=== PATIENT | male | born 1985 | race Caucasian/White ===

== ENCOUNTER 2017-01-03 12:45 | Emergency (ER) | payer SELFPAY ==
[2017-01-03] MEDS ORDERED: ADDERALL 30 MG30 M2 PO (12:48)
[2017-01-03] MEDS ORDERED: CELEXA20 M2 PO (12:48)
[2017-01-03 13:32] LABS: BASO % 0.5 % (0-2); EOS % 0.5 % (0-7); HCT-HEMATOCRIT 40.9 % (36.0-53.5); HGB-HEMOGLOBIN 14.7 gm/dl (13.5-17.0); IMMATURE GRANULOCYTES ABSOLUTE 0.03 tho/cmm (0-0.03); IMMATURE GRANULOCYTES PERCENT 0.5 % (0-0.3); LYMPH % 14.7 % (20-45); MCH (MEAN CORPUSCULAR HGB) 34.4 pg (28.0-32.0); MCHC MEAN CORPUSCULAR HGB CONC 35.9 % (32.0-36.0); MCV (MEAN CELL VOLUME) 95.8 fl (82.0-96.0); MEAN PLATELET VOLUME 9.6 cmc (9.4-12.4); MONO % 11.2 % (0-12); MONOCYTE ABSOLUTE COUNT 0.7 tho/cmm (0.0-1.2); NEUTROPHIL ABSOLUTE COUNT 4.7 tho/cmm (1.6-8.0); NEUTROPHIL-AUTOMATED 4.7 tho/cmm (1.6-8.0); NEUTROPHILS % 72.6 % (40-80); PLATELET COUNT 144 tho/cmm (150-450); RED BLOOD COUNT 4.27 mil/cmm (4.40-5.70); RED CELL DISTRIBUTION WIDTH 12.1 % (12.4-16.4); WHITE BLOOD COUNT 6.5 tho/cmm (4.0-10.0)
[2017-01-03 13:51] LABS: ALBUMIN 4.2 g/dl (3.5-5.0); ALCOHOL (ETOH) <10 mg/dl (<10); ALKALINE PHOSPHATASE 91 U/L (33-138); ALT/SGPT 135 U/L (12-78); ANION GAP 14 mmol/L (0-20); AST/SGOT 128 U/L (10-40); BILIRUBIN,TOTAL 1.1 mg/dl (0.0-1.5); BLOOD UREA NITROGEN 8 mg/dl (6-24); CALCIUM 9.3 mg/dl (8.5-10.5); CARBON DIOXIDE-VENOUS 23 mmol/L (22-32); CHLORIDE 106 mmol/l (96-110); CREATININE 1.05 mg/dl (0.60-1.30); GLUCOSE 159 mg/dL (70-110); POTASSIUM 3.8 mmol/L (3.7-5.1); SODIUM 139 mmol/L (135-145); eGFR VALUE FOR BLACK >90 mL/Min
== END 2017-01-03 15:03 ==
LOC: EDMED 12:45
PROVIDERS: Emergency Medicine
DX: R56.9 Unspecified convulsions (principal); F10.20 Alcohol dependence, uncomplicated; Y90.0 Blood alcohol level of less than 20 mg/100 ml
CPT/HCPCS: G0480; J2060; J7030